=== PATIENT | female | born 1950 | race Two or more races ===

== ENCOUNTER 2024-07-24 09:02 | Inpatient (IN) | payer OTHER ==
[~2024-07-24] VITALS: Ht 180.3 cm; Wt 45.4 kg
[2024-07-24] MEDS ORDERED: NEURONTIN300 MG PO (09:40)
[2024-07-24] MEDS ORDERED: DOLOGESIC 500-1 EACH (09:41)
[2024-07-24] MEDS ORDERED: KETOROLAC TROMETHAMINE 30 MG VIAL IM ONE (10:30)
[2024-07-24] MEDS ORDERED: KETOROLAC TROMETHAMINE 30 MG VIAL ONE ×2 (10:39→16:00)
[2024-07-24 11:39] LABS: HEMATOCRIT 26.3 % (36.0-45.00); MEAN CELL VOLUME 80.7 fL (80.00-100.00); MEAN CORPUSCULAR HEMOGLOBIN 26.6 pg (27.00-32.0); PLATELET COUNT 346 K/uL (150-450); RED BLOOD COUNT 3.26 M/uL (4.00-6.00); RED CELL DISTRIBUTION WIDTH 19.2 % (11.5-14.5)
[2024-07-24 11:40] LABS: HEMOGLOBIN 8.7 g/dL (12.0-15.00)
[2024-07-24 11:44] LABS: ERYTHROCYTE SEDIMENTATION RATE 113 mm/hr
[2024-07-24 12:45] LABS: ALBUMIN 2.3 gm/dL (3.4-5.0); BILIRUBIN TOTAL 0.35 mg/dL (0.3-1.2); CALCIUM 8.6 mg/dL (8.5-10.1); CREATININE SERUM 0.4 mg/dL (0.55-1.02); GFR 156.46; GLOBULINA 4.3 G/DL (2.4-3.5); POTASSIUM 4.24 mEq/L (3.5-5.1); TOTAL PROTEIN 6.6 gm/dL (6.4-8.2)
[2024-07-24 12:50] LABS: C-REACTIVE PROTEIN 10.7 MG/DL (0.00-0.29)
[2024-07-24] MEDS ORDERED: LEVALBUTEROL HCL 1.25 MG/3 ML SOLUTION IH SCH (18:09)
[2024-07-24] MEDS ORDERED: GABAPENTIN 400 MG CAPSULE PO SCH (18:13)
[2024-07-24] MEDS ORDERED: PIPERACILLIN/TAZOBACTAM SODIUM 3.375 GM in 0.9 % SODIUM CHLORIDE 100 ML IV SCH (18:14)
[2024-07-24] MEDS ORDERED: ONDANSETRON HCL 4 MG in 0.9 % SODIUM CHLORIDE 50 ML IV PRN (18:15)
[2024-07-24] MEDS ORDERED: ACETAMINOPHEN 500 MG GEL..CAP PO PRN (18:15)
[2024-07-24] MEDS ORDERED: 0.9 % SODIUM CHLORIDE 1,000 ML IV SCH (18:15)
[2024-07-24] MEDS ORDERED: MORPHINE SULFATE 2 MG/ML CARTRIDGE IV PRN (18:15)
[2024-07-24] MEDS ORDERED: PIPERACILLIN/TAZOBACTAM SODIUM 3.375 GM VIAL IV ONE (18:53)
[2024-07-24] MEDS ORDERED: IPRATROPIUM BROMIDE 0.5 MG/2.5 ML AMPUL.NEB IH ONE (19:50)
[2024-07-24] MEDS ORDERED: LEVALBUTEROL HCL 0.63 MG/3 ML SOLUTION IH ONE (19:51)
[2024-07-24] MEDS ORDERED: FAMOTIDINE/PF 20 MG/2 ML VIAL ONE (20:23)
[2024-07-24] MEDS ORDERED: FAMOTIDINE/PF 20 MG in 0.9 % SODIUM CHLORIDE 8 ML IV PUSH SCH (21:00)
[2024-07-24 23:00] VITALS: BP 129/63; O2SAT 99
[2024-07-25] MEDS ORDERED: IPRATROPIUM BROMIDE 0.5 MG/2.5 ML AMPUL.NEB IH SCH
[2024-07-25] MEDS ORDERED: PIPERACILLIN/TAZOBACTAM SODIUM 3.375 GM VIAL IV ONE (00:14)
[2024-07-25 04:00] VITALS: BP 139/70; O2SAT 97
[2024-07-25] MEDS ORDERED: ENOXAPARIN SODIUM 40 MG/0.4 ML SYRINGE SUBCUTANEO SCH (09:00)
[2024-07-25] MEDS ORDERED: SODIUM HYPOCHLORITE 1OZ TOP SCH (09:00)
[2024-07-25 09:39] VITALS: BP 138/67; O2SAT 100
[2024-07-25 10:09] LABS: PH,URINE 5.5 (5.0-8.0); URINE APPEARANCE Cloudy; URINE BILIRRUBIN Negative (NEGATIVE); URINE BLOOD Moderate; URINE COLOR Yellow; URINE KETONE Trace (NEGATIVE); URINE LEUKOCYTE Moderate; URINE NITRATE Negative; URINE PROTEIN 30 (NEGATIVE)
[2024-07-25 10:13] LABS: URINE BACTERIA 176.3 uL (0.0-1933); URINE EPITHELIAL CELLS 8.1 uL (0.0-38.8); URINE RBC 371.1 uL (0.0-20.8); URINE WBC 283.5 uL (0.0-23.2)
[2024-07-25 10:31] LABS: URINE CAST 0.15 uL (0.0-1.40); URINE GLUCOSE 250 MG/DL (NEGATIVE)
[2024-07-25 10:35] LABS: URINE CRYSTALS FEW /HPF; URINE YEAST MODERATE /hpf
[2024-07-25 10:49] LABS: HEMATOCRIT 25.2 % (36.0-45.00); MEAN CELL VOLUME 82.1 fL (80.00-100.00); MEAN CORPUSCULAR HGB CONC 32.9 g/dl (32.0-36.0); PLATELET COUNT 365 K/uL (150-450); RED BLOOD COUNT 3.07 M/uL (4.00-6.00); RED CELL DISTRIBUTION WIDTH 18.9 % (11.5-14.5)
[2024-07-25 10:57] LABS: INR 1.07; PARTIAL THROMBOPLASTIN TIME 33.6 SECONDS (22.0-34.0); PROTHROMBIN TIME 11.6 SECONDS (9.0-11.5)
[2024-07-25 11:01] LABS: ALBUMIN 2.3 gm/dL (3.4-5.0); ALKALINE PHOSPHATASE 139 U/L (50-136); ALT/SGPT 20 U/L (12-78); ANION GAP 9 (10.0-20.0); AST/SGOT 17 U/L (15-37); BILIRUBIN TOTAL 0.24 mg/dL (0.3-1.2); BILIRUBIN,CONJUGATED < 0.10 mg/dL (0.0-0.2); BILIRUBIN,UNCONJUGATED 0.14 mg/dL (0.0-0.6); BLOOD UREA NITROGEN 13 mg/dL (7-18); BUN CREA RATIO 27 (7.0-25.0); CALCIUM 8.2 mg/dL (8.5-10.1); CARBON DIOXIDE 30 mEq/L (21-32); CHLORIDE 103 mmol/L (98-107); CHOL HDL RATIO 2.6 (0-5.0); CHOLESTEROL 123 mg/dL (0-200); CREATININE SERUM 0.48 mg/dL (0.55-1.02); GFR 126.77; GLOBULINA 4.4 G/DL (2.4-3.5); GLUCOSE FASTING 155 mg/dL (65-100); HDL 48 mg/dl (40-60); LDL 62 mg/dl (0-130); OSMOLALITY SERUM 279 MOSM/KG (275-295); POTASSIUM 3.57 mEq/L (3.5-5.1); SODIUM 138 mmol/L (136-145); TOTAL PROTEIN 6.7 gm/dL (6.4-8.2); TRIGLYCERIDES 65 mg/dL (0-150); VLDL 13 (0-39)
[2024-07-25 11:04] LABS: C-REACTIVE PROTEIN 9.78 MG/DL (0.00-0.29)
[2024-07-25 11:20] LABS: HEMOGLOBIN 8.3 g/dL (12.0-15.00)
[2024-07-25 12:08] LABS: COL EPI 161 SECONDS (82-175)
[2024-07-25 15:21] LABS: ABG PH 7.436 (7.35-7.45)
[2024-07-25 15:22] LABS: ABG PO2 90.1 mmHg (80-100); ABG pCO2 43.9 mmHg (35-45); BICARBONATE 28.8 mmol/l (23-25); SaO2 97.3 %; Tco2 30.2 mmol/l; allen test SATISFACTORY; o2 21 %; puncture site RADIAL RIGHT
[2024-07-25 16:00] VITALS: BP 139/66; O2SAT 95
[2024-07-25] MEDS ORDERED: TUBERCULIN,PURIF.PROT.DERIV. 5 TU/0.1 ML VIAL ID NR (17:00)
[2024-07-25] MEDS ORDERED: CEFTRIAXONE SODIUM 2,000 MG in 0.9 % SODIUM CHLORIDE 100 ML IV SCH (17:00)
[2024-07-25] MEDS ORDERED: METRONIDAZOLE/SODIUM CHLORIDE 100 ML IV SCH (17:00)
[2024-07-26 00:55] VITALS: BP 131/62; O2SAT 100
[2024-07-26 08:00] VITALS: BP 119/69; O2SAT 100
[2024-07-26] MEDS ORDERED: MORPHINE SULFATE 4 MG/ML CARTRIDGE IV PRN (10:44)
[2024-07-26 16:05] VITALS: BP 125/73; O2SAT 100
[2024-07-27 00:41] VITALS: BP 108/60; O2SAT 96
[2024-07-27 07:49] VITALS: BP 123/57; O2SAT 98
[2024-07-27] MEDS ORDERED: TUBERCULIN,PURIF.PROT.DERIV. 10 SKIN.TEST SKIN.TEST ID ONE (13:45)
[2024-07-27 16:23] VITALS: BP 106/65; O2SAT 98
[2024-07-27] MEDS ORDERED: METROnidazole 500 MG TABLET PO SCH (17:00)
[2024-07-28 00:32] VITALS: BP 94/55; O2SAT 96
[2024-07-28] MEDS ORDERED: FAMOtidine 20 MG TABLET PO SCH (09:00)
[2024-07-28 10:26] VITALS: BP 113/61; O2SAT 98
[2024-07-28 16:00] VITALS: BP 129/70; O2SAT 96
[2024-07-29 00:34] VITALS: BP 111/57; O2SAT 100
[2024-07-29 07:49] LABS: MEAN CELL VOLUME 80.8 fL (80.00-100.00); PLATELET COUNT 370 K/uL (150-450); RED BLOOD COUNT 2.67 M/uL (4.00-6.00); RED CELL DISTRIBUTION WIDTH 18.7 % (11.5-14.5)
[2024-07-29 07:53] LABS: HEMATOCRIT 21.6 % (36.0-45.00); MEAN CORPUSCULAR HEMOGLOBIN 27.3 pg (27.00-32.0)
[2024-07-29 07:54] LABS: HEMOGLOBIN 7.3 g/dL (12.0-15.00)
[2024-07-29 08:00] VITALS: BP 130/66; O2SAT 100
[2024-07-29] MEDS ORDERED: PIPERACILLIN/TAZOBACTAM SODIUM 4.5 GM VIAL IV NR (12:15)
[2024-07-29] MEDS ORDERED: TRAMADOL HCL 50 MG TABLET PO SCH ×2 (17:00)
[2024-07-29] MEDS ORDERED: PIPERACILLIN/TAZOBACTAM SODIUM 3.375 GM VIAL IV SCH (17:00)
[2024-07-29 18:06] VITALS: BP 100/72; O2SAT 97
[2024-07-30 01:32] VITALS: BP 112/60; O2SAT 98
[2024-07-30 07:02] LABS: MEAN CELL VOLUME 80.5 fL (80.00-100.00); MEAN CORPUSCULAR HGB CONC 34.4 g/dl (32.0-36.0); PLATELET COUNT 349 K/uL (150-450); RED BLOOD COUNT 3.11 M/uL (4.00-6.00)
[2024-07-30 07:36] LABS: MEAN CORPUSCULAR HEMOGLOBIN 27.6 pg (27.00-32.0)
[2024-07-30 07:37] LABS: HEMOGLOBIN 8.6 g/dL (12.0-15.00)
[2024-07-30 08:42] VITALS: BP 119/64; O2SAT 98
[2024-07-30 16:00] VITALS: BP 116/74; O2SAT 97
[2024-07-30] MEDS ORDERED: ACETAMINOPHEN 500 MG GEL..CAP PO SCH (17:00)
[2024-07-31 01:24] VITALS: BP 115/67; O2SAT 98
[2024-07-31 08:00] VITALS: BP 134/67; O2SAT 99
[2024-07-31 14:03] LABS: HEMATOCRIT 26.2 % (36.0-45.00); MEAN CELL VOLUME 81.5 fL (80.00-100.00); MEAN CORPUSCULAR HEMOGLOBIN 27.1 pg (27.00-32.0); MEAN CORPUSCULAR HGB CONC 33.3 g/dl (32.0-36.0); PLATELET COUNT 361 K/uL (150-450); RED BLOOD COUNT 3.21 M/uL (4.00-6.00); RED CELL DISTRIBUTION WIDTH 18.9 % (11.5-14.5)
[2024-07-31 14:05] LABS: HEMOGLOBIN 8.7 g/dL (12.0-15.00)
[2024-07-31 14:42] LABS: ALBUMIN 2.2 gm/dL (3.4-5.0); BILIRUBIN TOTAL 0.2 mg/dL (0.3-1.2); CALCIUM 7.8 mg/dL (8.5-10.1); CREATININE SERUM 0.32 mg/dL (0.55-1.02); GFR 202.41; GLOBULINA 3.9 G/DL (2.4-3.5); POTASSIUM 3.68 mEq/L (3.5-5.1); TOTAL PROTEIN 6.1 gm/dL (6.4-8.2)
[2024-07-31 16:00] VITALS: BP 134/66; O2SAT 97
[2024-08-01 01:33] VITALS: BP 117/72; O2SAT 98
[2024-08-01 08:00] VITALS: BP 147/84; O2SAT 97
[2024-08-01 16:22] VITALS: BP 143/84; O2SAT 97
[2024-08-02 01:00] VITALS: BP 127/68; O2SAT 98
[2024-08-02 08:05] LABS: HEMATOCRIT 27.5 % (36.0-45.00); HEMOGLOBIN 9.2 g/dL (12.0-15.00); MEAN CELL VOLUME 81.4 fL (80.00-100.00); MEAN CORPUSCULAR HEMOGLOBIN 27.3 pg (27.00-32.0); MEAN CORPUSCULAR HGB CONC 33.6 g/dl (32.0-36.0); PLATELET COUNT 380 K/uL (150-450); RED BLOOD COUNT 3.37 M/uL (4.00-6.00); RED CELL DISTRIBUTION WIDTH 19.3 % (11.5-14.5)
[2024-08-02 08:18] VITALS: BP 133/69; O2SAT 98
[2024-08-02 08:20] LABS: ALBUMIN 2.3 gm/dL (3.4-5.0); BILIRUBIN TOTAL 0.3 mg/dL (0.3-1.2); CALCIUM 8.6 mg/dL (8.5-10.1); CREATININE SERUM 0.33 mg/dL (0.55-1.02); GFR 195.35; GLOBULINA 4.1 G/DL (2.4-3.5); POTASSIUM 4.09 mEq/L (3.5-5.1); TOTAL PROTEIN 6.4 gm/dL (6.4-8.2)
[2024-08-02 17:00] VITALS: BP 133/74; O2SAT 97
[2024-08-03 00:54] VITALS: BP 128/72; O2SAT 99
[2024-08-03 08:00] VITALS: BP 154/72; O2SAT 100
[2024-08-03 16:00] VITALS: BP 127/81; O2SAT 98
[2024-08-03] MEDS ORDERED: TRAMADOL HCL 50 MG TABLET PO SCH ×2 (17:00→21:00)
[2024-08-04 00:44] VITALS: BP 108/59; O2SAT 96
[2024-08-04 08:00] VITALS: BP 134/68; O2SAT 98
== END 2024-08-05 08:05 | disposition home or self-care (01) | DRG 463 ==
LOC: ER 09:03 → SEC-K 18:33 → SURH 18:33 → MEDI 18:33 → SEC-K 19:19 → SURH 07-25 01:00
PROVIDERS: General Practice; Internal Medicine; ADMIT Internal Medicine; ATTEND Internal Medicine
PROC: 0JB70ZZ Excision of Back Subcutaneous Tissue and Fascia, Open Approach (ICD-10-PCS; principal; 2024-07-24)
PROC: 3E0F7GC Introduction of Other Therapeutic Substance into Respiratory Tract, Via Natural or Artificial Opening (ICD-10-PCS; 2024-07-24)
PROC: BR3CZZZ Magnetic Resonance Imaging (MRI) of Pelvis (ICD-10-PCS; 2024-07-27)
PROC: BR3CYZZ Magnetic Resonance Imaging (MRI) of Pelvis using Other Contrast (ICD-10-PCS; 2024-07-27)
PROC: 0QB10ZZ Excision of Sacrum, Open Approach (ICD-10-PCS; 2024-07-29)
PROC: BB24ZZZ Computerized Tomography (CT Scan) of Bilateral Lungs (ICD-10-PCS; 2024-07-29)
PROC: 30233N1 Transfusion of Nonautologous Red Blood Cells into Peripheral Vein, Percutaneous Approach (ICD-10-PCS; 2024-07-29)
PROC: 02HV33Z Insertion of Infusion Device into Superior Vena Cava, Percutaneous Approach (ICD-10-PCS; 2024-08-04)
DX: M86.68 Other chronic osteomyelitis, other site (principal); L89.154 Pressure ulcer of sacral region, stage 4; E46 Unspecified protein-calorie malnutrition; Z68.1 Body mass index [BMI] 19.9 or less, adult; D64.89 Other specified anemias; J98.4 Other disorders of lung; Z91.013 Allergy to seafood; B96.20 Unspecified Escherichia coli [E. coli] as the cause of diseases classified elsewhere; B95.2 Enterococcus as the cause of diseases classified elsewhere; B96.5 Pseudomonas (aeruginosa) (mallei) (pseudomallei) as the cause of diseases classified elsewhere; B96.89 Other specified bacterial agents as the cause of diseases classified elsewhere
CPT/HCPCS: 72198

== ENCOUNTER → 2024-08-07 | Emergency (ER) | payer OTHER ==
[~2024-08-07] VITALS: Ht 180.3 cm; Wt 45.4 kg
[~2024-08-07] MED LIST: DOLOGESIC 500-1 EACH; NEURONTIN300 MG PO
== END | disposition left against medical advice (07) ==
LOC: ER 10:02
DX: Z53.21 Procedure and treatment not carried out due to patient leaving prior to being seen by health care provider (principal)